=== PATIENT | female | born 1980 | race Caucasian/White ===

== ENCOUNTER → 2019-08-25 | Outpatient (CLI) | payer OTHER | END | disposition home or self-care (01) | LOC: LAB 12:18 | PROVIDERS: ATTEND Preventive Medicine Preventive Medicine/Occupational Environmental Medicine | DX: Z02.1 Encounter for pre-employment examination (principal) | CPT/HCPCS: 36415; 86706 ==

== ENCOUNTER → 2020-03-02 | Outpatient (CLI) | payer BC, MEDICAID ==
[2020-03-02 08:49] LABS: Basophils # (auto) 0 10 ^3/uL (0-0.2); Basophils % (auto) 0.5 % (0.0-2.0); Eosinophils # (auto) 0.2 10 ^3/uL (0-0.8); Eosinophils % (auto) 3.3 % (0.0-7.0); Hemoglobin 13.4 g/dL (12.2-16.2); Lymphocytes # (auto) 1.1 10 ^3/uL (0.4-5.4); Lymphocytes % (auto) 21.4 % (10.0-50.0); Mean Corpuscular Hgb Conc. 31.8 g/dL (32.0-36.0); Mean Corpuscular Volume 84.8 fL (80.0-100.0); Monocytes # (auto) 0.4 10 ^3/uL (0-1.3); Monocytes % (auto) 7.7 % (0.0-12.0); Neutrophils # (auto) 3.5 10 ^3/uL (1.6-8.6); Neutrophils % (auto) 67.1 % (37.0-80.0); Nucleated Red Blood Cells % 0.1 %; Platelet Count (auto) 240 10^3/uL (140-450); Red Blood Cells 4.96 10^6/uL (4.0-5.20); Red Cell Distribution Width 15.1 % (11.8-14.3); White Blood Cell 5.1 10^3/uL (4.4-10.8)
[2020-03-02 09:29] LABS: Potassium 4.2 mmol/L (3.5-5.1)
[2020-03-02 09:44] LABS: Albumin 3.8 g/dL (3.4-5.0); BUN/Creatinine Ratio 16.5; Bilirubin, Total 0.6 mg/dL (0.2-1.0); Calcium 9.2 mg/dL (8.5-10.1)
== END | disposition home or self-care (01) ==
LOC: LAB 07:51
PROVIDERS: ATTEND Internal Medicine Nephrology
DX: T45.2X1A Poisoning by vitamins, accidental (unintentional), initial encounter (principal); E03.9 Hypothyroidism, unspecified; X58.XXXA Exposure to other specified factors, initial encounter; Y93.29 Activity, other involving ice and snow; Y92.29 Other specified public building as the place of occurrence of the external cause; Y99.8 Other external cause status
CPT/HCPCS: 36415; 80053; 80061; 82306; 84439; 84443; 85025

== ENCOUNTER → 2020-10-19 | Outpatient (CLI) | payer BC, MEDICAID | END | disposition home or self-care (01) | LOC: LAB 14:52 | PROVIDERS: ATTEND Nurse Practitioner Family | DX: Z20.828 Contact with and (suspected) exposure to other viral communicable diseases (principal) | CPT/HCPCS: C9803; U0003 ==

== ENCOUNTER → 2020-11-16 | Outpatient (CLI) | payer OTHER | END | disposition home or self-care (01) | LOC: LAB 11:47 | PROVIDERS: ATTEND Nurse Practitioner Family | DX: Z20.822 Contact with and (suspected) exposure to COVID-19 (principal) | CPT/HCPCS: C9803; U0003 ==

== ENCOUNTER → 2021-07-26 | Outpatient (CLI) | payer BC ==
[2021-07-26 08:13] LABS: Basophils # (auto) 0 10 ^3/uL (0-0.2); Lymphocytes # (auto) 1.1 10 ^3/uL (0.4-5.4); Monocytes # (auto) 0.4 10 ^3/uL (0-1.3); Red Blood Cells 4.96 10^6/uL (4.0-5.20); Red Cell Distribution Width 16.8 % (11.8-14.3)
[2021-07-26 08:15] LABS: Basophils % (auto) 0.6 % (0.0-2.0); Eosinophils # (auto) 0.1 10 ^3/uL (0-0.8); Eosinophils % (auto) 2.7 % (0.0-7.0); Hematocrit 38.6 % (36.0-46.0); Hemoglobin 12.1 g/dL (12.2-16.2); Mean Corpuscular Hemoglobin 24.4 pg (28.0-32.0); Mean Corpuscular Hgb Conc. 31.3 g/dL (32.0-36.0); Mean Corpuscular Volume 77.8 fL (80.0-100.0); Monocytes % (auto) 7.9 % (0.0-12.0); Neutrophils # (auto) 3.7 10 ^3/uL (1.6-8.6); Neutrophils % (auto) 67.8 % (37.0-80.0); White Blood Cell 5.4 10^3/uL (4.4-10.8)
[2021-07-26 08:44] LABS: Albumin 3.7 g/dL (3.4-5.0); Potassium 3.9 mmol/L (3.5-5.1)
[2021-07-26 08:48] LABS: BUN/Creatinine Ratio 14.8; Bilirubin, Total 0.6 mg/dL (0.2-1.0)
== END | disposition home or self-care (01) ==
LOC: LAB 07:54
PROVIDERS: ATTEND Nurse Practitioner Family
DX: D50.0 Iron deficiency anemia secondary to blood loss (chronic) (principal); E66.01 Morbid (severe) obesity due to excess calories; E55.9 Vitamin D deficiency, unspecified; F41.9 Anxiety disorder, unspecified; E03.9 Hypothyroidism, unspecified
CPT/HCPCS: 36415; 80053; 80061; 82306; 83036; 84443; 85025

== ENCOUNTER → 2023-12-08 | Outpatient (CLI) | payer BC, MEDICAID ==
[2023-12-08 08:16] LABS: Basophils # (auto) 0 10 ^3/uL (0-0.2); Basophils % (auto) 0.5 % (0.0-2.0); Eosinophils # (auto) 0.3 10 ^3/uL (0-0.8); Hematocrit 40.6 % (36.0-46.0); Lymphocytes # (auto) 1.3 10 ^3/uL (0.4-5.4); Lymphocytes % (auto) 22.1 % (10.0-50.0); Mean Corpuscular Hemoglobin 27.1 pg (28.0-32.0); Mean Corpuscular Volume 84.9 fL (80.0-100.0); Monocytes # (auto) 0.4 10 ^3/uL (0-1.3); Monocytes % (auto) 7.5 % (0.0-12.0); Neutrophils # (auto) 3.7 10 ^3/uL (1.6-8.6); Neutrophils % (auto) 64.9 % (37.0-80.0); Red Blood Cells 4.78 10^6/uL (4.0-5.20); Red Cell Distribution Width 14.9 % (11.8-14.3); White Blood Cell 5.7 10^3/uL (4.4-10.8)
[2023-12-08 08:51] LABS: Alanine Aminotransferase 19 U/L (7-40); Albumin 4.5 g/dL (3.2-4.8); Alkaline Phosphatase 52 U/L (46-116); Anion Gap 8 (5-15); Aspartate Aminotransferase 17 U/L (13-40); BUN/Creatinine Ratio 12.5 (10.0-20.0); Bilirubin, Total 0.5 mg/dL (0.2-1.0); Blood Urea Nitrogen 12 mg/dL (9-23); Calcium 9.7 mg/dL (8.5-10.1); Carbon Dioxide 27 mmol/L (20-30); Chloride 106 mmol/L (98-107); Cholesterol 211 mg/dL (< 200); Glucose 104 mg/dL (74-106); HDL Cholesterol 39 mg/dL (40-59); LDL Cholesterol 154 mg/dL (< 100); Potassium 4.5 mmol/L (3.5-5.1); Sodium 141 mmol/L (136-145); Triglycerides 203 mg/dL (< 150)
[2023-12-08 08:52] LABS: Total Protein 6.5 g/dL (5.7-8.2)
[2023-12-08 08:54] LABS: Thyroid Stimulating Hormone 0.59 uIU/mL (0.55-4.78)
[2023-12-08 09:02] LABS: Beta HCG, Quantitative 2.1 mIU/mL (1.5-4.2)
[2023-12-08 10:31] LABS: Follicle Stimulating Hormone 8.99 IU/L (SEE BELOW)
[2023-12-08 10:32] LABS: Leuteinizing Hormone 6.4 IU/L; Prolactin 15.31 ng/mL (2.8-29.2)
[2023-12-08 10:34] LABS: Free T4 (Free Thyroxine) 1.45 ng/dL (0.89-1.76)
== END | disposition home or self-care (01) ==
LOC: LAB 07:42
PROVIDERS: ATTEND Nurse Practitioner Family
DX: E66.01 Morbid (severe) obesity due to excess calories (principal); R87.1 Abnormal level of hormones in specimens from female genital organs; E03.9 Hypothyroidism, unspecified; D50.0 Iron deficiency anemia secondary to blood loss (chronic); R73.03 Prediabetes
CPT/HCPCS: 36415; 80053; 80061; 81025; 82306; 82670; 83001; 83002; 83036; 84146; 84439; 84443; 84702; 85025